=== PATIENT | male | born 1985 | race Caucasian/White ===

== ENCOUNTER 2025-05-10 23:31 | Emergency (ER) | payer MEDICAID ==
--- NOTE | 2025-05-11 01:01 | Physician Documentation ---
HPI ~ General Chief Complaint: Tooth Problem Stated Complaint: MOUTH PAIN Time Seen by MD: 00:46 History of Present Illness HPI Comment This is a 39-year-old gentleman with a known history of poor dentition who presented for evaluation of severe pain that he describes as electric shock to his left upper jaw where he has a fractured tooth with a likely exposed nerve. No palliating or aggravating factors. Symptoms has been present in its current condition for the last two days. He did have intermittent on and off tooth pain for the last month or so. The he does not have a dentist. He attempted to treat her with the ibuprofen and Tylenol with the only marginal success. Denies difficulty opening his mouth, denies drooling, denies voice changes. Denies hearing changes. Denies any concern for tobacco, alcohol or illicit substances use. Smokes copious amounts of marijuana. Medication Reconciliation Allergies: Coded Allergies: No Known Allergies (Unverified , 05/11/25) Review of Systems ROS 10 point review of systems was performed and unless noted above in HPI is negative for acute process/complaint. Physical Exam Vital Signs: Respiratory Rate: 15 Physical Exam Physical examination: GENERAL: Awake, alert, oriented, GCS 15, no apparent distress, non-toxic appearing, answers questions, follows commands appropriately. HEENT: Atraumatic, normocephalic, pupils equal, extraocular muscles intact Active gross movements, sclerae anicteric, mucus membranes moist, no stridor. NECK: Midline, no JVD CARDIOVASCULAR: Good skin perfusion without evidence of pallor, mottling. PULMONARY: Nonlabored, symmetric chest rise, no audible wheezing, no accessory muscle use, no respiratory distress, speaking in full sentences. GASTROINTESTINAL: Not distended. NEUROLOGIC: Lucid with normal mental status. Normal facial symmetry. Moves all extremities symmetrically and with purpose. No truncal ataxia. Speech is fluid without evidence of dysarthria or aphasia, no focal deficits appreciated. EXTREMITIES: Acute deformities Skin: warm, dry PSYCHIATRIC: Normal affect, normal insight, normal concentration. Focused exam: [Poor dentition noted. Multiple caries. There is a fractured 1st molar tooth on the left upper jaw. No abscess. No trismus, no drooling, no hot potato voice, no floor of the mouth elevation, no submandibular erythema. No pain with flexion or extension of the neck.] Progress Results/Orders Results/Orders Vital Signs 05/11/25 00:00 Resp 15 Medical Decision Making Additional information obtaine: N/A (In his this could be) Findings Facility Status: ED Holds, [facility] process The plan was discussed with the patient, who demonstrates clear understanding of the plan and is in agreement with the plan unless otherwise noted in the chart. All questions have been answered, all concerns were addressed unless otherwise documented. I was available throughout their ED stay for frequent reassessment and questions. Differential Diagnoses (considered and possible or likely): [Dental infection, dental pain, dental abscess, less likely osteomyelitis of the jaw, clinically not consistent with Derek's angina, peritonsillar abscess, retropharyngeal abscess. No evidence of airway compromise.] ??Differential Diagnoses (considered and unlikely, not requiring evaluation currently): [See above] MDM Data Please see [facility] for the following: Independent Historians and external Records Review. Historian: [Patient] Independent Historians: ?[None] Medication Management: [Reviewed medication list] Social History and determinants: [Reviewed] Please see the body of the note for the following: Any independent interpretations of ECG, imaging studies. All vitals signs/haemodynamics, ordered tests were independently reviewed and interpreted by myself. Nursing triage complaint and vitals reviewed, additional nursing notes were reviewed as available and I agree unless otherwise noted or documented in contradiction in the chart Vital Signs: Independently reviewed Labs: Independently interpreted Imaging: Independently interpreted Old Medical Records: Independently reviewed, see HPI for relevant summary and information Pulse Oximetry: [100%] interpreted as [normal on room air] by me Additionally notably showing: [Hemodynamically stable] Tests considered but not ordered include: [Hematologic workup and imaging has been considered but does not appear to be necessary given clinical nature of diagnosis] Social Determinants of Health Impact: Patient was evaluated in [facility], or [facility] [place] access to healthcare due to below par ratio of patient to medical providers. [] Comorbid Conditions Impacting Present Evaluation and Care/Treatment: [Poor dentition] Management Discussions with other Healthcare Providers: [None] Treatment and Disposition Medication Management (Given or considered): [Initial dose of antibiotics, pain management]. See EMR for details Consideration for Hospitalization/Escalation/Deescalation of Care: Admission for observation has been considered, [however the patient is able to tolerate p.o., their symptoms are controlled, they are able to rely on oral medications, and their chief complaint/diagnosis can be managed on outpatient basis.] ?ED Course:?[No clinical deterioration] ?Shared decision making:?[Patient is hemodynamically stable for discharge home with follow with their primary care provider. [ ] Specific and cautious return precautions provided and discussed with full understanding. Any incidental findings were also discussed and follow up recommendations given. [] All questions answered. Patient/family were able to verbalize back return precautions. Patient/family agree to plan. Copies of imaging and laboratory studies were provided.] Code status:?FULL Please see the full Electronic Medical Record for full details of nursing docume ntation, medications list, other records of complete past medical history and conditions, vital signs, laboratory studies, and any radiologic study interpretations by radiologists. Portions of this note were completed using [employer] dictation software and as a result there may exist minor errors in spelling. I have reviewed elements of past family and social history and agree as included in note. Differential Dx:Considerations: Include: Other (See body of main note for differential diagnosis) Departure Disposition: 01 HOME / SELF CARE / HOMELESS Impression: Primary Impression: Dental infection Condition: Improved Discharge Instructions: Dental Pain Referrals: NO PRIMARY CARE PROVIDER (PCP) Prescriptions Amox Tr/Potassium Clavulanate (Augmentin 875-125 Tablet) 1 Each Tablet 1 TAB PO Q12H for 10 Days, #20 TAB Prov: ALDO HALE DO 05/11/25 Hydrocodone Bit/Acetaminophen 5/325 MG ([place] 5/325 MG) 5 Mg/325 Mg Tablet 1 TAB PO Q6H PRN for pain, #14 TAB Prov: ALDO HALE DO 05/11/25 Education Educated: Patient Educated regarding: diagnosis, treatment, prognosis, need for follow up Signature Scribe Signature: No scribe Attestation: The note accurately reflects work and decisions made by me.Aldo Hale DO 05/11/25 01:04 ALDO HALE DO May 11, 2025 01:01
[2025-05-11] MEDS ORDERED: HYDR-3965 PO (01:03)
[2025-05-11] MEDS ORDERED: AMOX-117 PO (01:05)
[2025-05-11] MEDS: amox tr/potassium clavulanate 875/125mg TAB PO ONE (01:10)
[2025-05-11 01:11] VITALS: RESP 18
[2025-05-11] MEDS: HYDROcodone/acetaminophen 5mg/325mg tablet PO ONE (01:11)
== END 2025-05-11 01:25 | disposition home or self-care (01) ==
LOC: ER 23:32
DX: K04.7 Periapical abscess without sinus (principal); F12.90 Cannabis use, unspecified, uncomplicated; F17.200 Nicotine dependence, unspecified, uncomplicated
CPT/HCPCS: 99283